=== PATIENT | female | born 1990 | race African-American/Black ===

== ENCOUNTER 2019-06-25 04:37 | Emergency (ER) | payer OTHER, SELFPAY ==
--- NOTE | ~2019-06-25 | XR_ITS ---
EXAMINATION: CT abdomen pelvis wo con, XR abdomen/kub 1V DATE: 06/25/2019 06:12 INDICATION: Left flank pain TECHNIQUE: 1. Computed tomography (CT) of the abdomen and pelvis was performed without intravenous contrast. Aut omated exposure control and iterative reconstruction technique were employed. The dose-length product was 252.23 mGy-cm. 2. Frontal view of the abdomen and pelvis was obtained on 2 radiographs. COMPARISON: 04/02/2017 FINDINGS: CT: Lung bases are clear. Heart size is normal. No pericardial or pleural effusion. Liver, gallbladder, s pleen, pancreas, bilateral adrenal glands and kidneys are normal. No urolithiasis or hydronephrosis. Bladder is normal. Retroverted uterus and right adnexa are normal. 4.5 cm cystic lesion at the left a dnexa with slightly greater than simple fluid attenuation which appears to increase inferiorly. Bowel s including the appendix are normal. No free intraperitoneal gas or fluid. No pathologically enlarged abdominal or pelvic lymphadenopathy. Bones are unremarkable. KUB: Normal bowel gas pattern. No suspicious calcifications in the abdomen or pelvis. IMPRESSION: 1. 4.5 cm cystic left ovarian lesion with gradient of slightly greater than simple fluid attenuation, statistically most likely a hemorrhagic cyst but would consider pelvic ultrasound for further evalua tion. Reviewed, dictated and finalized at location A. MAKER MACHINE IMPRESSION: 1. 4.5 cm cystic left ovarian lesion with gradient of slightly greater than sim ple fluid attenuation, statistically most likely a hemorrhagic cyst but would c onsider pelvic ultrasound for further evaluation.
[2019-06-25 04:41] VITALS: BP 159/78; PULSE 118; RESP 16; TEMP 36.8; O2SAT 100
--- NOTE | 2019-06-25 05:21 | ED.ABDPAIN ---
HPI - Abdominal Pain General Chief Complaint: Abdominal Pain Stated Complaint: back pain Time Seen by Provider: 06/25/19 04:46 Source: patient Mode of arrival: ambulatory Limitations: no limitations History of Present Illness HPI narrative: 28 yo female who presents for evaluation of left flank pain. Patient states she has been having intermittent left flank pain for 3 days. She states drinking water helps to relieve the past for a short period. She states this morning she took 800 mg ibuprofen without relief . She denies urinary symptoms. She states she did vomiting once last night. She denies fever or chills. She denies abdominal pain. MD elicited complaint: flank pain Onset (ago): day(s) (3) Pain Consistency: intermittent Location: L flank Quality: dull Radiation: none Relieving factors: other (drinking water) Related Data Hx Last Menstrual Period: 10 days ago Allergies Allergy/AdvReac Type Severity Reaction Status Date / Time No Known Allergies Allergy Unknown Unverified 02/11/19 17:21 Review of Systems Review of Systems: All systems reviewed & are unremarkable except as noted in HPI and below Constitutional: Constitutional: Denies chills and Denies fever(s) Gastrointestinal: Gastrointestinal: Denies abdominal pain, Reports nausea and Reports vomiting Genitourinary: Genitourinary: Denies hematuria and Reports flank pain PMFSH Past Medical History Medical History (Updated 06/26/19 @ 00:00 by Donavan Valentin) GERD (gastroesophageal reflux disease) Social History Social History (Updated 06/25/19 @ 05:24 by Regla Gordillo MD) Smoking status: Never smoker Exam Narrative: Exam Narrative: GENERAL: Well-appearing, well-nourished, and in no acute distress. HEAD: Normocephalic, atraumatic NOSE: Nares clear, no rhinorrhea or epistaxis THROAT:Mucous membranes moist, Oropharynx normal without erythema, exudate, peritonsillar swelling or fluctuance NECK: Supple, without lymphadenopathy or mass RESPIRATORY: No respiratory distress, Airway patent, Respirations non-labored, Clear to auscultation without rales, rhonchi or wheeze HEART: Regular rate and rhythm. No murmur heard. Normal peripheral pulses. ABDOMEN: Soft, nontender, nondistended, normal active bowel sounds. No masses. No rebound or guarding, No organomegaly. EXTREMITIES: No edema, normal strength with full range of motion. SKIN: Warm, dry, normal color without rash NEURO: Alert and oriented x3. CN 2-12 grossly intact. No focal deficits. PSYCH: Normal mood and affect. Course Reevaluation(s) Reevaluation #1: Patient state she feels better. Patient has appointment with OBGYN on on . This does not appear to be torsion. Date: 06/25/19 Time: 06:51 Vital Signs Vital signs: Vital Signs Temperature 98.3 F 06/25/19 04:41 Pulse Rate 118 H 06/25/19 04:41 Respiratory Rate 16 06/25/19 04:41 Blood Pressure 159/78 H 06/25/19 04:41 Pulse Oximetry 100 06/25/19 04:41 Temperature 98.6 F 06/25/19 07:12 Pulse Rate 82 06/25/19 07:12 Respiratory Rate 16 06/25/19 07:12 Blood Pressure 112/85 06/25/19 07:12 Pulse Oximetry 100 06/25/19 07:12 MDM - Abdominal Pain Lab Data Result diagrams: 06/25/19 05:18 06/25/19 05:18 Labs: Lab Results 06/25/19 06/25/19 06/25/19 Range/Units 05:18 05:18 05:22 WBC 6.8 (4.5-10.0) K/mm3 RBC 4.29 (4.2-5.4) M/mm3 Hgb 10.9 L (12.0-15.0) g/dL Hct 34.3 L (37.0-47.0) % MCV 80.0 (80-100) fl MCH 25.4 L (26-34) pg MCHC 31.8 L (32-36) g/dl RDW 16.8 H (11.5-14.5) % Plt Count 300 (150-375) k/mm3 MPV 11.8 H (7.4-10.4) fl Immature Gran % (Auto) 0.1 (0-0.5) % Neut % (Auto) 46.5 (45.5-73.1) % Lymph % (Auto) 43.7 (18.3-44.2) % [place] % (Auto) 7.2 (2.6-8.5) % Eos % (Auto) 1.5 (0-4.4) % Baso % (Auto) 1.0 (0.2-1.2) % Lymph # (Auto) 2.96 (0.9-3.2) K/mm3 [place] # (A
[2019-06-25 05:36] LABS: Basophils Absolute Auto 0.1 K/mm3 (0.0-0.1); Eosinophils Absolute Auto 0.1 K/mm3 (0-0.3); Eosinophils Percent Auto 1.5 % (0-4.4); Hematocrit 34.3 % (37.0-47.0); Hemoglobin 10.9 g/dL (12.0-15.0); Immature Granulocyte Absolute 0.01 K/mm3 (0.00-0.031); Immature Granulocyte Percent A 0.1 % (0-0.5); Lymphocytes Absolute Auto 2.96 K/mm3 (0.9-3.2); Lymphocytes Percent Auto 43.7 % (18.3-44.2); Mean Corpuscular HGB Conc 31.8 g/dl (32-36); Mean Corpuscular Hemoglobin 25.4 pg (26-34); Mean Platelet Volume 11.8 fl (7.4-10.4); Monocytes Absolute Auto 0.5 K/mm3 (0.1-0.6); Monocytes Percent Auto 7.2 % (2.6-8.5); Neutrophils Absolute Auto 3.2 K/mm3 (1.3-6.7); Neutrophils Percent Auto 46.5 % (45.5-73.1); Platelet Count Result 300 k/mm3 (150-375); Red Blood Count 4.29 M/mm3 (4.2-5.4); Red Cell Distribution Width 16.8 % (11.5-14.5); White Blood Count 6.8 K/mm3 (4.5-10.0)
[2019-06-25 05:45] LABS: Add Urine Microscopic? YES; Appearance Urine Cloudy (Clear); Bacteria Urine Trace /hpf; Bilirubin Urine Negative (Negative); Blood Urine Negative (Negative); Color Urine Yellow (Yellow); Glucose Urine UA Negative (Negative); Ketones Urine Negative (Negative); Leukocyte Esterase Ur 1+ LEU/UL (Negative); Mucus Urine Moderate /lpf; Nitrate Urine Negative (Negative); Protein Urine Negative (Negative); Squamous Epithelial Cell Urine Many /hpf (Few); Urobilinogen Urine Negative mg/dL (<2.0)
[2019-06-25 05:48] VITALS: TEMP 36.8
[2019-06-25 05:50] LABS: Blood Urea Nitrogen 17 mg/dL (7-17); Calcium 9.4 mg/dL (8.4-10.2); Carbon Dioxide 23 mmol/L (22-30); Chloride 100 mmol/L (98-107); Estimated CRCL calculation 81 ml/min; Estimated Glomerular Filt Rate > 60; Glucose 105 mg/dL (65-105); Potassium 3.9 mmol/L (3.4-5.0); Sodium 138 mmol/L (137-145)
[2019-06-25] MEDS: LACTATED RINGERS 1,000 ML 999 ML IV CONT (06:16)
[2019-06-25 06:26] VITALS: BP 122/68; PULSE 75; RESP 16; TEMP 37; O2SAT 100
[2019-06-25 07:12] VITALS: BP 112/85; PULSE 82; RESP 16; TEMP 37; O2SAT 100
--- NOTE | 2019-06-27 20:40 | PC.NURSE ---
LATE ENTRY This note is being entered to document information to the patient's record. The following information was omitted on 06/25/2019, LR STOPPED AT 0556.
== END 2019-06-25 07:13 | disposition home or self-care (01) ==
PROVIDERS: Emergency Provider General Practice
DX: K21.9 Gastro-esophageal reflux disease without esophagitis (principal); N83.202 Unspecified ovarian cyst, left side; N39.0 Urinary tract infection, site not specified
CPT/HCPCS: 36415; 74018; 74176; 80048; 81001; 81025; 85025; 96374; 99284; J0131; J7120

== ENCOUNTER 2020-01-29 19:41 | Emergency (ER) | payer OTHER, SELFPAY ==
[2020-01-29 19:53] VITALS: BP 152/94; PULSE 94; RESP 16; TEMP 36.9; O2SAT 97
--- NOTE | 2020-01-29 19:58 | ED.FEMALEGU ---
HPI - Female Genitourinary General Chief complaint: Urogenital-Female Stated complaint: Uroggenital-female Time Seen by Provider: 01/29/20 19:58 Source: patient Mode of arrival: ambulatory Limitations: no limitations History of Present Illness HPI Narrative: 29 year old female who presents to [facility] with complaints of dysuria, feeling like she is not emptying her bladder and her urine having foul odor. 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 Patient did receive Flagyl 2gms on January 14. Patient states that she has recently started on iron and Vitamin D and she has been having some constipation issues. Patient states that she has aching sensation in perineum rates her pain 3/10. MD elicited complaint: dysuria, back pain and other (hesitency with urination, foul odor, constipation) Pertinent past history: other (past UTI's) Onset (ago): week(s) (1) Location of symptoms: perineum Severity: mild Female Urogenital Radiation: Non-Radiating Severity scale (1-10): 3 Quality of pain: aching Consistency: intermittent Vaginal discharge: none Vaginal bleeding: none Urinary symptoms: Foul Smelling Urine Associated symptoms: back pain and constipation Treatment prior to arrival: none Sexual activity: Yes Patient : No Date of Last Menstrual Period: 01/17/20 Related Data Home Medications Medication Instructions Recorded Confirmed omeprazole 40 mg PO DAILY 01/29/20 01/29/20 Allergies Allergy/AdvReac Type Severity Reaction Status Date / Time No Known Allergies Allergy Unknown Unverified 02/11/19 17:21 Review of Systems Review of Systems: Narrative: CONSTITUTIONAL: Denies fever, chills, or sweats. EYES: Denies visual changes, redness, or discharge. ENT: Denies rhinorrhea, congestion, sore throat, or otalgia. CARDIOVASCULAR: Denies chest pain, palpitations, or edema. RESPIRATORY: Denies cough or dyspnea. GASTROINTESTINAL: Denies abdominal pain, nausea, vomiting, or diarrhea. GENITOURINARY: positive dysuria no hematuria.perineum aching SKIN: Denies rash or itching. MUSCULOSKELETAL: some low back discomfort, no joint pain, or myalgia. NEUROLOGIC: Denies headache, numbness, or weakness. PSYCHIATRIC: Denies anxiety or depression. All systems reviewed & are unremarkable except as noted in HPI and below PMFSH Past Medical History Medical History (Updated 01/30/20 @ 20:08 by Ora Naqvi NP) GERD (gastroesophageal reflux disease) UTI (urinary tract infection) Social History Social History (Updated 01/30/20 @ 20:06 by Ora Naqvi NP) Smoking status: Never smoker Living arrangements: with family Gender identity (if verbalized by the patient): Female Comments At time of signature, agree with nursing past medical, surgical, social history. There is no relevant family history pertinent to the presenting complaint Exam Narrative: Exam Narrative: GENERAL: Well-appearing, well-nourished, and in no acute distress. HEAD: Normocephalic, atraumatic. EYES: PERRLA and EOMI. ENT: Nares clear, no rhinorrhea or epistaxis. Mucous membranes moist. NECK: Supple. No lymphadenopathy CHEST: Clear to auscultation. No respiratory distress. HEART: Regular rate and rhythm. No murmur heard. Normal peripheral pulses. ABDOMEN: Soft, nontender, nondistended, normal active bowel sounds.No CVA tenderness, verbalizes feelings like she is not emptying bladder and perineum discomfort EXTREMITIES: Normal range of motion. No edema. SKIN: Warm, dry, no rash. NEURO: No focal deficits. Alert and oriented x3. Course Vital Signs Vital signs: Vital Signs Temperature 36.9 C 01/29/20 19:53 Pulse Rate 94 01/29/20 19:53 Respiratory Rate 16 01/29/20 19:53 Blood Pressure 152/94 H 01/29/20 19:53 Pulse Oximetry 97 01/29/20 19:53 Temperature 36.9 C 01/29/20 19:53 Pulse Rate 94 01/29/20 19:53 Respiratory Rate 16 01/29/20 19:53 Blood Pressure
== END 2020-01-29 20:07 | disposition home or self-care (01) ==
PROVIDERS: Emergency Provider Registered Nurse; PCP Physician Assistant
DX: R30.0 Dysuria (principal); K59.00 Constipation, unspecified; K21.9 Gastro-esophageal reflux disease without esophagitis
CPT/HCPCS: 81003; 99212; G0463

== ENCOUNTER 2020-07-19 02:02 | Emergency (ER) | payer BC, SELFPAY ==
[2020-07-19 02:05] VITALS: BP 167/87; PULSE 123; RESP 20; TEMP 36.7; O2SAT 100
[2020-07-19] MEDS: SODIUM CHLORIDE 0.9% IV 1,000 ML 999 ML IV CONT (02:45)
[2020-07-19 02:48] LABS: Basophils Absolute Auto 0.1 K/mm3 (0.0-0.1); Basophils Percent Auto 0.8 % (0.2-1.2); Eosinophils Absolute Auto 0.1 K/mm3 (0-0.3); Eosinophils Percent Auto 1.1 % (0-4.4); Hematocrit 36.3 % (37.0-47.0); Hemoglobin 12.3 g/dL (12.0-15.0); Immature Granulocyte Absolute 0.03 K/mm3 (0.00-0.031); Immature Granulocyte Percent A 0.3 % (0-0.5); Lymphocytes Absolute Auto 3.15 K/mm3 (0.9-3.2); Lymphocytes Percent Auto 30.8 % (18.3-44.2); Mean Corpuscular HGB Conc 33.9 g/dl (32-36); Mean Corpuscular Hemoglobin 27.8 pg (26-34); Mean Corpuscular Volume 81.9 fl (80-100); Mean Platelet Volume 10.8 fl (7.4-10.4); Monocytes Absolute Auto 0.5 K/mm3 (0.1-0.6); Monocytes Percent Auto 5.1 % (2.6-8.5); Neutrophils Absolute Auto 6.3 K/mm3 (1.3-6.7); Neutrophils Percent Auto 61.9 % (45.5-73.1); Platelet Count Result 401 k/mm3 (150-375); Red Blood Count 4.43 M/mm3 (4.2-5.4); Red Cell Distribution Width 13.1 % (11.5-14.5); White Blood Count 10.2 K/mm3 (4.5-10.0)
[2020-07-19 02:53] LABS: Add Urine Microscopic? YES; Appearance Urine Cloudy (Clear); Bacteria Urine 1+ /hpf; Bilirubin Urine Negative (Negative); Blood Urine Negative (Negative); Color Urine Yellow (Yellow); Glucose Urine UA Negative (Negative); Ketones Urine Negative (Negative); Leukocyte Esterase Ur Trace LEU/UL (Negative); Mucus Urine Rare /lpf; Nitrate Urine Negative (Negative); Protein Urine 1+ mg/dL (Negative); Specific Grav Ur 1.018 (1.001-1.035); Squamous Epithelial Cell Urine Moderate /hpf (Few); Urobilinogen Urine Negative mg/dL (<2.0)
[2020-07-19 02:54] VITALS: BP 148/91; PULSE 94; RESP 15; O2SAT 100
[2020-07-19 03:00] LABS: Anion Gap 8 mmol/L (8-16); Blood Urea Nitrogen 13 mg/dL (7-17); Carbon Dioxide 23 mmol/L (22-30); Chloride 106 mmol/L (98-107); Estimated CRCL calculation 77 ml/min; Estimated Glomerular Filt Rate > 60; Glucose 109 mg/dL (65-105); Potassium 4.2 mmol/L (3.4-5.0); Sodium 137 mmol/L (137-145)
--- NOTE | 2020-07-19 03:40 | ED.GENADULT ---
HPI - General Adult General Chief complaint: Unspecified Stated complaint: cold flashes Time Seen by Provider: 07/19/20 02:05 History of Present Illness HPI narrative: Patient is a 29-year-old female who presents ER with complaint of chills to her extremities. Ongoing throughout the evening. It has her concerned. She has history of anemia. No bleeding recently. She has not been taking iron but does take vitamins. Recently discovered that she is via IVF. Did implantation 2 weeks ago. No lower abdominal pain outside of some typical cramping that she has been experiencing. Has follow-up with her infertility doctor tomorrow. Patient denies runny nose/sore throat/productive cough. She has had no urinary frequency/urgency/dysuria. No nausea/vomiting/diarrhea. No known sick contacts or Covid contacts. Related Data Home Medications Medication Instructions Recorded Confirmed estradiol mg 07/19/20 progesterone mg IM 07/19/20 Allergies Allergy/AdvReac Type Severity Reaction Status Date / Time No Known Allergies Allergy Unknown Verified 07/19/20 02:09 Review of Systems Constitutional: Constitutional: Reports chills, Denies fatigue and Denies fever(s) ENT: Denies nasal congestion and Denies sore throat Respiratory: Respiratory: Denies chest congestion, Denies cough and Denies dyspnea Gastrointestinal: Gastrointestinal: Denies abdominal pain, Denies diarrhea, Denies nausea and Denies vomiting Genitourinary: Genitourinary: Denies dysuria and Denies urinary urgency PMFSH Past Medical History Medical History (Updated 07/19/20 @ 03:48 by Emerson Ervin MD) GERD (gastroesophageal reflux disease) UTI (urinary tract infection) Social History Social History (Updated 01/30/20 @ 20:06 by rOa Naqvi NP) Smoking status: Never smoker Gender identity (if verbalized by the patient): Female Exam Narrative: Exam Narrative: GENERAL: Well-appearing, well-nourished, and in no acute distress. HEAD: Normocephalic, atraumatic. CHEST: Clear to auscultation. No respiratory distress. HEART: Regular rate and rhythm. Normal peripheral pulses. ABDOMEN: Soft, nontender, nondistended. EXTREMITIES: Normal range of motion. No edema. SKIN: Warm, dry, no rash. NEURO: Alert and oriented x3. Course Course Emergency Course: Patient hydrated. Tachycardia improved. Will treat urinalysis. Vital Signs Vital signs: Vital Signs Temperature 98.1 F 07/19/20 02:05 Pulse Rate 123 H 07/19/20 02:05 Respiratory Rate 20 07/19/20 02:05 Blood Pressure 167/87 H 07/19/20 02:05 Pulse Oximetry 100 07/19/20 02:05 Temperature 98.1 F 07/19/20 02:05 Pulse Rate 94 07/19/20 02:54 Respiratory Rate 15 07/19/20 02:54 Blood Pressure 148/91 H 07/19/20 02:54 Pulse Oximetry 100 07/19/20 02:54 Medical Decision Making Vital Signs Vital Signs: Vital Signs Temperature 98.1 F 07/19/20 02:05 Pulse Rate 123 H 07/19/20 02:05 Respiratory Rate 20 07/19/20 02:05 Blood Pressure 167/87 H 07/19/20 02:05 Pulse Oximetry 100 07/19/20 02:05 Temperature 98.1 F 07/19/20 02:05 Pulse Rate 94 07/19/20 02:54 Respiratory Rate 15 07/19/20 02:54 Blood Pressure 148/91 H 07/19/20 02:54 Pulse Oximetry 100 07/19/20 02:54 Lab Data Result diagrams: 07/19/20 02:41 07/19/20 02:41 Labs: Lab Results 07/19/20 07/19/20 07/19/20 Range/Units 02:41 02:41 02:41 WBC 10.2 H (4.5-10.0) K/mm3 RBC 4.43 (4.2-5.4) M/mm3 Hgb 12.3 (12.0-15.0) g/dL Hct 36.3 L (37.0-47.0) % MCV 81.9 (80-100) fl MCH 27.8 (26-34) pg MCHC 33.9 (32-36) g/dl RDW 13.1 (11.5-14.5) % Plt Count 401 H (150-375) k/mm3 MPV 10.8 H (7.4-10.4) fl Immature Gran % (Auto) 0.3 (0-0.5) % Neut % (Auto) 61.9 (45.5-73.1) % Lymph % (Auto) 30.8 (18.3-44.2) % [place] % (Auto) 5.1 (2.6-8.5) % Eos % (Auto) 1.1 (0-4.4) % Baso % (
[2020-07-19 04:06] VITALS: BP 127/82; PULSE 90; RESP 18; O2SAT 100
== END 2020-07-19 04:08 | disposition home or self-care (01) ==
PROVIDERS: Emergency Provider Emergency Medicine; PCP Physician Assistant
DX: O23.91 Unspecified genitourinary tract infection in pregnancy, first trimester (principal); O99.011 Anemia complicating pregnancy, first trimester; D64.9 Anemia, unspecified; O99.611 Diseases of the digestive system complicating pregnancy, first trimester; K21.9 Gastro-esophageal reflux disease without esophagitis; Z3A.01 Less than 8 weeks gestation of pregnancy
CPT/HCPCS: 36415; 80048; 81001; 85025; 96360; 99283; J7030

== ENCOUNTER 2020-08-20 18:08 | Emergency (ER) | payer BC, SELFPAY ==
[2020-08-20 18:10] VITALS: BP 156/77; PULSE 93; RESP 16; TEMP 36.5; O2SAT 99
[2020-08-20 19:12] LABS: Basophils Absolute Auto 0.1 K/mm3 (0.0-0.1); Basophils Percent Auto 0.8 % (0.2-1.2); Eosinophils Absolute Auto 0.3 K/mm3 (0-0.3); Eosinophils Percent Auto 2.8 % (0-4.4); Hemoglobin 12.1 g/dL (12.0-15.0); Immature Granulocyte Absolute 0.02 K/mm3 (0.00-0.031); Immature Granulocyte Percent A 0.2 % (0-0.5); Lymphocytes Absolute Auto 3.04 K/mm3 (0.9-3.2); Lymphocytes Percent Auto 32.6 % (18.3-44.2); Mean Corpuscular HGB Conc 33.6 g/dl (32-36); Mean Corpuscular Hemoglobin 27.7 pg (26-34); Mean Corpuscular Volume 82.4 fl (80-100); Mean Platelet Volume 10.9 fl (7.4-10.4); Monocytes Absolute Auto 0.6 K/mm3 (0.1-0.6); Monocytes Percent Auto 6.3 % (2.6-8.5); Neutrophils Absolute Auto 5.3 K/mm3 (1.3-6.7); Neutrophils Percent Auto 57.3 % (45.5-73.1); Platelet Count Result 347 k/mm3 (150-375); Red Blood Count 4.37 M/mm3 (4.2-5.4); Red Cell Distribution Width 13.1 % (11.5-14.5); White Blood Count 9.3 K/mm3 (4.5-10.0)
[2020-08-20 19:17] LABS: Add Urine Microscopic? YES; Appearance Urine Cloudy (Clear); Bacteria Urine Trace /hpf; Bilirubin Urine Negative (Negative); Blood Urine Negative (Negative); Color Urine Yellow (Yellow); Glucose Urine UA Negative (Negative); Ketones Urine Negative (Negative); Leukocyte Esterase Ur Negative LEU/UL (Negative); Mucus Urine Moderate /lpf; Nitrate Urine Negative (Negative); Protein Urine 1+ mg/dL (Negative); RBC Urine 0-2 /hpf (0-2); Specific Grav Ur 1.027 (1.001-1.035); Squamous Epithelial Cell Urine Occasional /hpf (Few); WBC Urine 0-3 /hpf
[2020-08-20 19:25] LABS: Alanine Aminotransferase 23 U/L (4-35); Albumin Level 4.3 g/dL (3.5-5.1); Alkaline Phosphatase 74 U/L (38-126); Anion Gap 9 mmol/L (8-16); Aspartate Amino Transferase 33 U/L (14-36); Bilirubin,Total < 0.1 mg/dL (0.2-1.3); Blood Urea Nitrogen 13 mg/dL (7-17); Carbon Dioxide 25 mmol/L (22-30); Chloride 103 mmol/L (98-107); Estimated CRCL calculation 89 ml/min; Estimated Glomerular Filt Rate > 60; Glucose 91 mg/dL (65-105); Potassium 3.5 mmol/L (3.4-5.0); Sodium 137 mmol/L (137-145)
[2020-08-20 20:18] VITALS: BP 131/86; PULSE 83; RESP 18; O2SAT 100
--- NOTE | 2020-08-20 20:24 | ED.GENADULT ---
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 Juve Norman. Patient notes slight cramping no other complaints denies injury trauma or other illness. Patient presents in no distress. Patient is G1, P0. Related Data Home Medications Medication Instructions Recorded Confirmed estradiol mg 07/19/20 progesterone mg IM 07/19/20 Allergies Allergy/AdvReac Type Severity Reaction Status Date / Time No Known Allergies Allergy Unknown Verified 08/20/20 18:45 Review of Systems Review of Systems: All systems reviewed & are unremarkable except as noted in HPI and below PMFSH Past Medical History Medical History GERD (gastroesophageal reflux disease) UTI (urinary tract infection) Social History Social History Smoking status: Never smoker Gender identity (if verbalized by the patient): Female Exam Narrative: Exam Narrative: GENERAL: Well-appearing, well-nourished, and in no acute distress. HEAD: Normocephalic, atraumatic. EYES: PERRLA and EOMI. ENT: Nares clear, no rhinorrhea or epistaxis. Mucous membranes moist. CHEST: Clear to auscultation. No respiratory distress. No wheezes rales or rhonchi HEART: Regular rate and rhythm. No murmur heard. Normal peripheral pulses. ABDOMEN: Soft, nontender, nondistended. EXTREMITIES: Normal range of motion. No edema. SKIN: Warm, dry, no rash. NEURO: No focal deficits. Alert and oriented x3. PSYCH: Normal mood and affect. Course Course Emergency Course: Patient in the room no distress aware of case findings treatment plan and diagnosis agreeing to follow-up with her cfd engineer tomorrow. Patient at this time felt appropriate for outpatient reevaluation did not require RhoGam hemodynamically stable Consultations Consultation #1: Discussed case with Dr. Soria is no other recommendations at this time and will follow patient in clinic tomorrow Date: 08/20/20 Time: 20:25 Vital Signs Vital signs: Vital Signs Temperature 97.7 F 08/20/20 18:10 Pulse Rate 93 08/20/20 18:10 Respiratory Rate 16 08/20/20 18:10 Blood Pressure 156/77 H 08/20/20 18:10 Pulse Oximetry 99 08/20/20 18:10 Temperature 97.7 F 08/20/20 18:10 Pulse Rate 83 08/20/20 20:18 Respiratory Rate 18 08/20/20 20:18 Blood Pressure 131/86 08/20/20 20:18 Pulse Oximetry 100 08/20/20 20:18 Medical Decision Making MDM Narrative Medical decision making narrative: Patient with vaginal bleeding in will follow with her cfd engineer tomorrow is hemodynamically stable felt appropriate for outpatient reevaluation has been given reasons to return Vital Signs Vital Signs: Vital Signs Temperature 97.7 F 08/20/20 18:10 Pulse Rate 93 08/20/20 18:10 Respiratory Rate 16 08/20/20 18:10 Blood Pressure 156/77 H 08/20/20 18:10 Pulse Oximetry 99 08/20/20 18:10 Temperature 97.7 F 08/20/20 18:10 Pulse Rate 83 08/20/20 20:18 Respiratory Rate 18 08/20/20 20:18 Blood Pressure 131/86 08/20/20 20:18 Pulse Oximetry 100 08/20/20 20:18 Lab Data Result diagrams: 08/20/20 19:06 08/20/20 19:06 Labs: Lab Results 08/20/20 08/20/20 08/20/20 Range/Units 19:06 19:06 19:06 WBC 9.3 (4.5-10.0) K/mm3 RBC 4.37 (4.2-5.4) M/mm3 Hgb 12.1 (12.0-15.0) g/dL Hct 36.0 L (37.0-47.0) % MCV 82.4 (80-100) fl MCH 27.7 (26-34) pg MCHC 33.6 (32-36) g/dl RDW 13.1 (11.5-1
== END 2020-08-20 20:35 | disposition home or self-care (01) ==
PROVIDERS: Emergency Medicine Emergency Medical Services; Emergency Provider Emergency Medicine; PCP Physician Assistant
DX: O20.9 Hemorrhage in early pregnancy, unspecified (principal); Z3A.09 9 weeks gestation of pregnancy; O99.611 Diseases of the digestive system complicating pregnancy, first trimester; K21.9 Gastro-esophageal reflux disease without esophagitis; Z87.440 Personal history of urinary (tract) infections
CPT/HCPCS: 36415; 80053; 81001; 84702; 85025; 99283

== ENCOUNTER 2020-09-27 14:33 | Emergency (ER) | payer SELFPAY ==
[2020-09-27 14:36] VITALS: BP 146/77; PULSE 106; RESP 20; TEMP 36.7; O2SAT 99
[2020-09-27 14:46] LABS: Basophils Absolute Auto 0.1 K/mm3 (0.0-0.1); Basophils Percent Auto 0.7 % (0.2-1.2); Eosinophils Absolute Auto 0.1 K/mm3 (0-0.3); Eosinophils Percent Auto 0.7 % (0-4.4); Hematocrit 36.3 % (37.0-47.0); Hemoglobin 12.2 g/dL (12.0-15.0); Immature Granulocyte Absolute 0.02 K/mm3 (0.00-0.031); Immature Granulocyte Percent A 0.2 % (0-0.5); Lymphocytes Absolute Auto 2.84 K/mm3 (0.9-3.2); Lymphocytes Percent Auto 33.2 % (18.3-44.2); Mean Corpuscular HGB Conc 33.6 g/dl (32-36); Mean Corpuscular Volume 83.4 fl (80-100); Mean Platelet Volume 11.2 fl (7.4-10.4); Monocytes Absolute Auto 0.5 K/mm3 (0.1-0.6); Monocytes Percent Auto 5.8 % (2.6-8.5); Neutrophils Absolute Auto 5.1 K/mm3 (1.3-6.7); Neutrophils Percent Auto 59.4 % (45.5-73.1); Platelet Count Result 274 k/mm3 (150-375); Red Blood Count 4.35 M/mm3 (4.2-5.4); Red Cell Distribution Width 12.7 % (11.5-14.5); White Blood Count 8.6 K/mm3 (4.5-10.0)
[2020-09-27 14:53] LABS: Add Urine Microscopic? YES; Appearance Urine Cloudy (Clear); Bilirubin Urine Negative (Negative); Blood Urine Negative (Negative); Color Urine Yellow (Yellow); Glucose Urine UA Negative (Negative); Ketones Urine Negative (Negative); Leukocyte Esterase Ur Trace LEU/UL (Negative); Mucus Urine Rare /lpf; Nitrate Urine Negative (Negative); Protein Urine 1+ mg/dL (Negative); RBC Urine 0-2 /hpf (0-2); Specific Grav Ur 1.025 (1.001-1.035); Squamous Epithelial Cell Urine Few /hpf (Few); Urobilinogen Urine Negative mg/dL (<2.0); WBC Urine 0-3 /hpf
[2020-09-27 14:57] LABS: Alanine Aminotransferase 13 U/L (4-35); Albumin Level 4.2 g/dL (3.5-5.1); Alkaline Phosphatase 61 U/L (38-126); Anion Gap 11 mmol/L (8-16); Aspartate Amino Transferase 25 U/L (14-36); Bilirubin,Total 0.1 mg/dL (0.2-1.3); Blood Urea Nitrogen 14 mg/dL (7-17); Calcium 9.8 mg/dL (8.4-10.2); Carbon Dioxide 22 mmol/L (22-30); Chloride 104 mmol/L (98-107); Estimated CRCL calculation 82 ml/min; Estimated Glomerular Filt Rate > 60; Glucose 96 mg/dL (65-105); Lipase 105 U/L (23-300); Potassium 4.3 mmol/L (3.4-5.0); Sodium 137 mmol/L (137-145)
--- NOTE | 2020-09-27 16:23 | ED.ABDPAIN ---
HPI - Abdominal Pain General Chief Complaint: Abdominal Pain Stated Complaint: vomting, abd pain, 14 wks Time Seen by Provider: 09/27/20 16:12 Source: patient Mode of arrival: ambulatory Limitations: no limitations History of Present Illness HPI narrative: This is a 29-year-old female, about 14 weeks that presents the emergency department for nausea and vomiting. Present over the last week. She has been taking vitamin B6 and Unisom with little relief. Also reports earlier today she had some mid abdominal pain which is what prompted her to be seen. Denies fever, dysuria or vaginal bleeding. Related Data Home Medications Medication Instructions Recorded Confirmed estradiol mg 07/19/20 progesterone mg IM 07/19/20 Allergies Allergy/AdvReac Type Severity Reaction Status Date / Time No Known Allergies Allergy Unknown Verified 08/20/20 18:45 Review of Systems Review of Systems: Narrative: CONSTITUTIONAL: Denies fever GASTROINTESTINAL: Reports abdominal pain, nausea, vomiting GENITOURINARY: Denies dysuria All systems reviewed & are unremarkable except as noted in HPI and below PMFSH Past Medical History Medical History GERD (gastroesophageal reflux disease) UTI (urinary tract infection) Social History Social History Smoking status: Never smoker Gender identity (if verbalized by the patient): Female Exam Narrative: Exam Narrative: GENERAL: Well-appearing, well-nourished, and in no acute distress. HEAD: Normocephalic, atraumatic. EYES: EOMI. CHEST: Clear to auscultation. No respiratory distress. No wheezes rales or rhonchi HEART: Regular rate and rhythm. No murmur heard. Normal peripheral pulses. ABDOMEN: Soft, nontender, nondistended, normal active bowel sounds. EXTREMITIES: Normal range of motion. No edema. SKIN: Warm, dry, no rash. NEURO: No focal deficits. Alert and oriented x3. PSYCH: Normal mood and affect Course Consultations Consultation #1: Spoke with Dr. Soria personal service workers about work-up. Patient will be given prescription for Zofran and is to follow-up in clinic. Date: 09/27/20 Time: 17:53 Vital Signs Vital signs: Vital Signs Temperature 98.0 F 09/27/20 14:36 Pulse Rate 106 H 09/27/20 14:36 Respiratory Rate 20 09/27/20 14:36 Blood Pressure 146/77 H 09/27/20 14:36 Pulse Oximetry 99 09/27/20 14:36 Temperature 98.0 F 09/27/20 14:36 Pulse Rate 106 H 09/27/20 14:36 Respiratory Rate 20 09/27/20 14:36 Blood Pressure 146/77 H 09/27/20 14:36 Pulse Oximetry 99 09/27/20 14:36 MDM - Abdominal Pain MDM Narrative Medical decision making narrative: Patient presents the emergency department for nausea and vomiting, 14 weeks . Was also reporting some abdominal discomfort earlier today. She is afebrile and nontoxic-appearing. Abdominal exam is benign. CBC and metabolic panel without concerning findings. Lipase is normal. UA without evidence of infection. Patient has had an ultrasound this showing live intrauterine gestation. She reports relief with IV fluids, Tylenol and Zofran. She has an appointment for follow-up with her OB tomorrow. Spoke with Dr. Soria personal service workers about work-up. Patient will be given prescription for Zofran and is to follow-up in clinic. She was given warnings to return to the ER Lab Data Attestation: I reviewed the patient's lab results. Result diagrams: 09/27/20 14:39 09/27/20 14:39 Labs: Lab Results 09/27/20 09/27/20 09/27/20 Range/Units 14:39 14:39 14:44 WBC 8.6 (4.5-10.0) K/mm3 RBC 4.35 (4.2-5.4) M/mm3 Hgb 12.2 (12.0-15.0) g/dL Hct 36.3 L (37.0-47.0) % MCV 83.4 (80-100) fl MCH 28.0 (26-34) pg MCHC 33.6 (32-36) g/dl RDW 12.7 (11.5-14.5) % Plt Count 274 (150-375) k/mm3 MPV 11.2 H (7.4-10.4) fl Immature Gran %
[2020-09-27] MEDS: SODIUM CHLORIDE 0.9% IV 1,000 ML 999 ML IV CONT (16:29)
[2020-09-27] MEDS: FAMOTIDINE 20 MG/2 ML VIAL IV PUSH (16:30)
[2020-09-27] MEDS: ONDANSETRON INJ 4 MG/2 ML VIAL IV PUSH (16:33)
== END 2020-09-27 18:21 | disposition home or self-care (01) ==
PROVIDERS: Emergency Provider Emergency Medicine; PCP Physician Assistant
DX: O21.9 Vomiting of pregnancy, unspecified (principal); O99.612 Diseases of the digestive system complicating pregnancy, second trimester; K21.9 Gastro-esophageal reflux disease without esophagitis; Z87.440 Personal history of urinary (tract) infections; Z3A.14 14 weeks gestation of pregnancy
CPT/HCPCS: 36415; 80053; 81001; 83690; 85025; 96361; 96374; 96375; 99284; J0131; J2405; J7030

== ENCOUNTER 2020-10-15 07:45 | Emergency (ER) | payer SELFPAY ==
--- NOTE | ~2020-10-15 | US_ITS ---
EXAMINATION: US OB follow up DATE: 10/15/2020 08:59 INDICATION: Vaginal bleeding during early second trimester . TECHNIQUE: Real-time ultrasound of the pelvis was performed. The interpreting radiologist was not pre sent for the study. COMPARISON: None. FINDINGS: There is a single living fetus in breech presentation. The placenta is posterior. heart rate i s 153 beats per minute (bpm). Oligohydramnios with no discernible fluid surrounding the fetus. This l imits assessment of the subsequent biometric measurements. The following biometric data were obtained: BPD: 3.3 cm -> 16 weeks 2 days Head circumference: 11.7 cm -> 15 weeks 5 days Abdominal circumference: 11.3 cm -> 17 weeks 1 days Femur length: 1.9 cm -> 15 weeks 4 days These measurements are concordant. Head circumference to abdominal circumference ratio: 1.03 (normal range 1.06-1.33). Estimated weight: 151 g (+/-) 23 g or 5 oz. (+/-) 1 oz. IMPRESSION: 1. Single living fetus in breech presentation with heart rate of 153 bpm. 2. Gestational age by ultrasound of 16 weeks 1 day(s) +/- 1 week(s) 1 day(s) with ultrasound estimate d date of delivery (PAULIE) of 03/31/2021. Estimated weight is 14th percentile by Hadlock criteria when 03/26/2021 is used as the PAULIE. Please correlate with clinical information or earlier ultrasound s for most accurate PAULIE. 3. Oligohydramnios with no discernible amniotic fluid surrounding the fetus. 4. Head circumference to abdominal circumference ratio slightly below the normal range however assess ment of both measurements is limited by the absence of surrounding amniotic fluid. Reviewed, dictated and finalized at location A. IMPRESSION: 1. Single living fetus in breech presentation with heart rate of 153 bpm. 2. Gestational age by ultrasound of 16 weeks 1 day(s) +/- 1 week(s) 1 day(s) wi th ultrasound estimated date of delivery (PAULIE) of 03/31/2021. Estimated w eight is 14th percentile by Hadlock criteria when 03/26/2021 is used as the PAULIE . Please correlate with clinical information or earlier ultrasounds for most ac curate PAULIE. 3. Oligohydramnios with no discernible amniotic fluid surrounding the fetus. 4. Head circumference to abdominal circumference ratio slightly below the opal l range however assessment of both measurements is limited by the absence of frias rrounding amniotic fluid.
[2020-10-15 07:53] VITALS: BP 154/92; PULSE 150; RESP 20; TEMP 36.7; O2SAT 100
--- NOTE | 2020-10-15 08:10 | ED.PREGNANCY ---
HPI - General Chief complaint: Vaginal Bleeding Stated complaint: 16 weeks gestation, vaginal bleeding Time Seen by Provider: 10/15/20 08:09 Source: patient Mode of arrival: ambulatory Limitations: no limitations History of Present Illness HPI Narrative: Patient is a 29-year-old female G2, P1 who presents for evaluation of vaginal bleeding. Patient currently 16 weeks , experiencing more cramping with vaginal bleeding that started early this morning. No gross blood clots. No heavy bleeding. No current severe abdominal pain. No back pain. No loss of fluids. No large blood clots. Patient is not yet feeling motion with this . Patient has had 1 ultrasound this which verified an IUP. No recent heavy lifting or vaginal intercourse. No back pain. Denies urinary symptoms. No fever, chills, cough or shortness of breath. No syncopal events. Patient is followed by Dr. Soria. This has otherwise been uncomplicated. Related Data Home Medications Medication Instructions Recorded Confirmed estradiol mg 07/19/20 progesterone mg IM 07/19/20 Allergies Allergy/AdvReac Type Severity Reaction Status Date / Time No Known Allergies Allergy Unknown Verified 10/15/20 07:56 Review of Systems Review of Systems: Narrative: CONSTITUTIONAL: Denies fever, chills, or sweats. EYES: Denies visual changes, redness, or discharge. ENT: Denies rhinorrhea, congestion, sore throat, or otalgia. CARDIOVASCULAR: Denies chest pain, palpitations, or edema. RESPIRATORY: Denies cough or dyspnea. GASTROINTESTINAL: Denies abdominal pain, nausea, vomiting, or diarrhea. : Reports light vaginal spotting GENITOURINARY: Denies dysuria or hematuria. SKIN: Denies rash or itching. MUSCULOSKELETAL: Denies back pain, joint pain, or myalgia. NEUROLOGIC: Denies headache, numbness, or weakness. [facility] Past Medical History Medical History GERD (gastroesophageal reflux disease) UTI (urinary tract infection) Social History Social History Smoking status: Never smoker Gender identity (if verbalized by the patient): Female Exam Narrative: Exam Narrative: GENERAL: Awake, alert, conversant HEAD: Normocephalic, atraumatic. EYES: PERRLA and EOMI. ENT: Nares clear, no rhinorrhea or epistaxis. Mucous membranes moist. NECK: Supple. CHEST: No respiratory distress, breathing even and non labored HEART: Regular rate, sinus rhythm ABDOMEN:Non distended, non tender : Labia majora and minora normal without lesions. Vagina with scant blood. No cervical motion tenderness. No adnexal tenderness or fullness bilaterally. No other discharge present. EXTREMITIES: Normal range of motion. No edema. SKIN: Warm, dry, no rash. NEURO:No focal deficits. Alert and oriented x3 Course Vital Signs Vital signs: Vital Signs Temperature 36.7 C 10/15/20 07:53 Pulse Rate 150 H 10/15/20 07:53 Respiratory Rate 20 10/15/20 07:53 Blood Pressure 154/92 H 10/15/20 07:53 Pulse Oximetry 100 10/15/20 07:53 Temperature 36.7 C 10/15/20 07:53 Pulse Rate 113 H 10/15/20 09:29 Respiratory Rate 20 10/15/20 09:29 Blood Pressure 142/95 H 10/15/20 09:29 Pulse Oximetry 100 10/15/20 09:29 MDM - OB/Uterine Contractions MDM Narrative Medical decision making narrative: Patient presenting for evaluation of vaginal bleeding in the setting of early second trimester . At the time of assessment, ABCs are intact, patient is tachycardic but quite anxious. No hypotension. IV access obtained and labs are drawn. Patient with scant bleeding, no brisk bleeding found on exam. parts are not presenting currently. No large clots. Patient is mildly anemic. No sign of gross hemorrhage or brisk blood loss. Laboratory results show no electrolyte derangement. Ultrasound was obtained, shows oligohydramnios. Afte
--- NOTE | 2020-10-15 08:47 | PC.NURSE ---
patient taken to ultrasound at this time, will obtain blood and urine when patient returns to room
--- NOTE | 2020-10-15 09:08 | PC.NURSE ---
Patient unable to give urine sample at this time, declines straight cath.
[2020-10-15 09:11] LABS: Basophils Percent Auto 0.3 % (0.2-1.2); Eosinophils Absolute Auto 0.1 K/mm3 (0-0.3); Hematocrit 34.7 % (37.0-47.0); Hemoglobin 11.9 g/dL (12.0-15.0); Immature Granulocyte Absolute 0.03 K/mm3 (0.00-0.031); Immature Granulocyte Percent A 0.3 % (0-0.5); Lymphocytes Absolute Auto 3.16 K/mm3 (0.9-3.2); Lymphocytes Percent Auto 31.7 % (18.3-44.2); Mean Corpuscular HGB Conc 34.3 g/dl (32-36); Mean Corpuscular Hemoglobin 27.9 pg (26-34); Mean Corpuscular Volume 81.3 fl (80-100); Mean Platelet Volume 11.2 fl (7.4-10.4); Monocytes Absolute Auto 0.6 K/mm3 (0.1-0.6); Monocytes Percent Auto 6.2 % (2.6-8.5); Neutrophils Percent Auto 60.5 % (45.5-73.1); Platelet Count Result 279 k/mm3 (150-375); Red Blood Count 4.27 M/mm3 (4.2-5.4); Red Cell Distribution Width 13.1 % (11.5-14.5)
[2020-10-15 09:19] LABS: Alanine Aminotransferase 18 U/L (4-35); Albumin Level 4.1 g/dL (3.5-5.1); Alkaline Phosphatase 66 U/L (38-126); Anion Gap 10 mmol/L (8-16); Aspartate Amino Transferase 35 U/L (14-36); Bilirubin,Total 0.2 mg/dL (0.2-1.3); Blood Urea Nitrogen 8 mg/dL (7-17); Calcium 9.4 mg/dL (8.4-10.2); Carbon Dioxide 19 mmol/L (22-30); Chloride 106 mmol/L (98-107); Estimated CRCL calculation 101 ml/min; Estimated Glomerular Filt Rate > 60; Glucose 112 mg/dL (65-105); Potassium 3.4 mmol/L (3.4-5.0); Sodium 135 mmol/L (137-145)
--- NOTE | 2020-10-15 09:22 | PC.NURSE ---
heart tone was 207 bpm by doppler.
[2020-10-15 09:23] VITALS: BP 137/81; PULSE 114
[2020-10-15 09:26] VITALS: BP 142/95; PULSE 123
[2020-10-15 09:27] VITALS: BP 142/95; PULSE 136
[2020-10-15 09:29] VITALS: BP 142/95; PULSE 113; RESP 20; O2SAT 100
--- NOTE | 2020-10-15 10:06 | PC.NURSE ---
pt not able to urinate at this time. pt declining straight catheter.
--- NOTE | 2020-10-15 16:30 | WPDCN ---
Assessment and Plan Assessment and plan (1) Supervision of high risk , unspecified, unspecified trimester: Code(s): O09.90 - Supervision of high risk , unspecified, unspecified trimester Status: Acute Assessment and Plan: 29 at 16w GA c/o vaginal bleeding and gush of fluid active IUP with FCA on US, oligohydramnios noted Rh+ H/H 11.9/34 (2) premature rupture of membranes: Code(s): O42.919 - premature rupture of membranes, unspecified as to length of time between rupture and onset of labor, unspecified trimester Status: Acute Assessment and Plan: pt reports large gush of fluid in the ED after presenting for vaginal bleeding oligohydramnios on US blood tinged vaginal pooling on exam cvx visibly 1 cm no products of conception visualized at the cervix no active bleeding on exam WBC 10 afebrile, VSS results discussed with patient discussed previable gestational age, discussed risks of hypoplastic lung development in the setting of prolonged PPROM. discussed that 70-80% of PPPROM will deliver within 1-2 weeks No concern for active PTL at this time, pt stable Pt given chorioamnionitis precautions. advised patient to return to the hospital with any signs of abdominal pain, contractions, fevers, continued bleeding. Pt to follow up in office tomorrow AM for repeat exam. HPI Data of Consult Date/Time: 10/15/20 10:30 Primary Care Provider: Lisa Toney, PA Consult Narrative Narrative: Ling Simon is a 29 year old female at 16w GA who presents to the ED with complaints of vaginal bleeding. Pt states she woke up around 0200 and was hungry. She tried to eat a snack and started having intense abdominal cramping. She tried to drink a soda and water and go to bed. She states that she continued to have cramping and then noticed vaginal bleeding. She states the bleeding was bright red. While in the ED, she reproted a large gush of fluid like her water broke. Pt was evaluated in the ED and US showed a live active IUP with FCA but oligohydramnios. Pt states she has continued to have a minimal amount of bleeding. She states her cramping has resolved. She denies any contractions. She denies any fever, chills, nausea or vomiting. Review of Systems Review of Systems: All systems reviewed & are unremarkable except as noted in HPI and below PMFSH Past Medical History Medical History GERD (gastroesophageal reflux disease) UTI (urinary tract infection) Social History Social History Smoking status: Never smoker Gender identity (if verbalized by the patient): Female Meds Home Medications and Allergies Home Medications Medication Instructions Recorded Confirmed Type estradiol mg 07/19/20 History progesterone mg IM 07/19/20 History ondansetron 4 mg PO Q8H PRN #10 tablet 09/27/20 Rx Allergies Allergy/AdvReac Type Severity Reaction Status Date / Time No Known Allergies Allergy Unknown Verified 10/15/20 07:56 Vital Signs Vital Signs - 24 hr 10/15/20 07:53 10/15/20 09:23 10/15/20 09:26 Temperature 36.7 C Pulse Rate 150 H 114 H 123 H Respiratory Rate 20 Blood Pressure 154/92 H 137/81 142/95 H Pulse Oximetry 100 10/15/20 09:27 10/15/20 09:29 Temperature Pulse Rate 136 H 113 H Respiratory Rate 20 Blood Pressure 142/95 H 142/95 H Pulse Oximetry 100 Exam Const: General: cooperative, healthy appearing and no acute distress Nutritional Appearance: average body habitus Limitations: no limitations Eyes: General: appearance normal, both eyes and all related structures Neck: Neck: normal visual inspection Resp: Effort & Inspection: normal respiratory effort and able to speak in complete sentences Cardio: Jugular venous distension: no JVD Rate: regular rate Rhythm: regular rhythm GI: Inspection: norm
== END 2020-10-15 11:02 | disposition home or self-care (01) ==
PROVIDERS: Emergency Provider Emergency Medicine; PCP Physician Assistant
DX: O42.912 Preterm premature rupture of membranes, unspecified as to length of time between rupture and onset of labor, second trimester (principal); O09.92 Supervision of high risk pregnancy, unspecified, second trimester; O99.612 Diseases of the digestive system complicating pregnancy, second trimester; K21.9 Gastro-esophageal reflux disease without esophagitis; Z87.440 Personal history of urinary (tract) infections; Z3A.16 16 weeks gestation of pregnancy
CPT/HCPCS: 36415; 76816; 80053; 84702; 85025; 85461; 99284

== ENCOUNTER 2020-10-17 10:23 | Observation (INO) | payer OTHER, SELFPAY ==
[2020-10-17] VITALS (32 sets, daily range): BP systolic 123–135; BP diastolic 78–84; PULSE 75–124; TEMP 36.6; O2SAT 82–100; BMI 29.2
[2020-10-17 11:18] LABS: Hematocrit 32.3 % (37.0-47.0); Hemoglobin 10.8 g/dL (12.0-15.0); Mean Corpuscular HGB Conc 33.4 g/dl (32-36); Mean Corpuscular Hemoglobin 27.8 pg (26-34); Mean Platelet Volume 10.9 fl (7.4-10.4); Platelet Count Result 254 k/mm3 (150-375); Red Blood Count 3.89 M/mm3 (4.2-5.4); Red Cell Distribution Width 13.1 % (11.5-14.5); White Blood Count 9.2 K/mm3 (4.5-10.0)
--- NOTE | 2020-10-17 12:33 | PM.OBTRLD ---
OB - Triage/Final Diagnosis Visit Information Date of evaluation: 10/17/20 Reason for evaluation: other (vaginal bleeding) Comments/Additional reasons for admission: 29 yo at 17w who presents with vaginal bleeding . Pt is complicated by PPROM on 10/15/20. Pt had vaginal bleeding and a large gush of fluid and was found to have oligohydramnios on US. Pt still had an active IUP w/ FCA. pt states that this AM she noticed a small amount of blood on tissue after wiping. She denies any contractions or pain. She denies any fever, chills, nausea, vomiting. She denies any bright red vaginal bleeding. I have assessed the risk for this patient, Ling Simon, and determined that she would benefit from observation care. Evaluation Baseline heart rate: 165 Laboratory results: Laboratory Tests 10/17/20 11:08 WBC 9.2 RBC 3.89 L Hgb 10.8 L Hct 32.3 L MCV 83.0 MCH 27.8 MCHC 33.4 RDW 13.1 Plt Count 254 MPV 10.9 H Vital signs: Vital Signs - 24 hr 10/17/20 10:40 10/17/20 10:45 10/17/20 10:48 Pulse Rate 104 H Blood Pressure 135/84 Pulse Oximetry 100 100 10/17/20 10:50 10/17/20 10:55 10/17/20 11:00 Pulse Rate 103 H Blood Pressure 123/78 Pulse Oximetry 100 100 100 10/17/20 11:05 10/17/20 11:10 10/17/20 11:15 Pulse Rate Blood Pressure Pulse Oximetry 100 100 100 10/17/20 11:17 10/17/20 11:18 10/17/20 11:23 Pulse Rate Blood Pressure Pulse Oximetry 100 100 100 10/17/20 11:28 10/17/20 11:33 10/17/20 11:37 Pulse Rate Blood Pressure Pulse Oximetry 100 100 100 10/17/20 11:43 10/17/20 11:48 10/17/20 11:53 Pulse Rate Blood Pressure Pulse Oximetry 100 100 100 10/17/20 11:58 10/17/20 12:03 10/17/20 12:04 Pulse Rate Blood Pressure Pulse Oximetry 100 100 100 10/17/20 12:07 10/17/20 12:12 10/17/20 12:17 Pulse Rate Blood Pressure Pulse Oximetry 93 100 100 10/17/20 12:22 10/17/20 12:27 10/17/20 12:32 Pulse Rate Blood Pressure Pulse Oximetry 100 100 98 Comments: FHT noted today on BSUS. WBC 9.2. Afebrile. Pt is tachycardic but attributes it to anxiety. abdomen non-tender on exam. No signs of choriomanionitis. Pt reassured about FHT. again, counseled on bleeding precautions, PTL and signs of infection. Pt d/c home with follow up this Monday Final Diagnosis (1) premature rupture of membranes: Code(s): O42.919 - premature rupture of membranes, unspecified as to length of time between rupture and onset of labor, unspecified trimester Status: Acute
--- NOTE | 2020-10-17 13:32 | OBADM ---
This patient, Ling Simon, admitted to the OB room OB Post 113 for observation. Patient oriented to hospital policies and general routines including ID bracelet, bed and alarms, visiting hours, pain management, procedures, bathroom and other care routines, personal items, smoking policy, room service/diet, call light and visiting hours. Patient is encouraged to report perceived risks to care and to ask questions if she does not understand what she is told or what she should do.
== END 2020-10-17 13:28 | disposition home or self-care (01) ==
PROVIDERS: Admitting Provider Student in an Organized Health Care Education/Training Program; PCP Physician Assistant; Visit Provider Student in an Organized Health Care Education/Training Program
DX: O46.92 Antepartum hemorrhage, unspecified, second trimester (principal); O42.912 Preterm premature rupture of membranes, unspecified as to length of time between rupture and onset of labor, second trimester; Z3A.17 17 weeks gestation of pregnancy
CPT/HCPCS: 36415; 85027; G0378; G0379

== ENCOUNTER 2020-10-26 21:35 | Observation (INO) | payer OTHER, SELFPAY ==
[2020-10-26 21:35] VITALS: BMI 29.0
--- NOTE | 2020-10-26 21:35 | OBADM ---
This patient, Ling Simon, admitted to the OB room OB Post 116 for observation. Patient/family oriented to hospital policies and general routines including ID bracelet, bed and alarms, visiting hours, pain management, procedures, bathroom and other care routines, personal items, smoking policy, room service/diet, and visiting hours. Patient/Family are encouraged to report perceived risks to care and to ask questions if they do not understand what they are told or what they should do.
--- NOTE | 2020-10-26 21:40 | PC.NURSE ---
Pt is 18 4/7 weeks gestation with SROM at 16 weeks. Pt staes she has been having increased in cramping today.
[2020-10-26 22:00] VITALS: BP 139/68; PULSE 112
--- NOTE | 2020-10-26 22:05 | PC.NURSE ---
Dr. Soria notified of FHT's. Pt resting quietly and appears comfortable. Pt stated she had not had BM for past week as she is afraid to bear down on toilet.
--- NOTE | 2020-10-26 23:00 | PC.NURSE ---
Pt offered the option to stay in OB tonight due to cramping or to go home to rest. Pt state she will go home and return if cramping increases. Pt does not have pain. Just discomfort with cramping. Pt to take Colace for constipation and advised she can also take Miralax or use Fleets enema per Dr. Soria.
[2020-10-26] MEDS: DOCUSATE SODIUM 100 MG CAPSULE PO (23:08)
--- NOTE | 2020-10-27 00:08 | PC.NURSE ---
2200 Dr. Soria notified of difficulty obtaining FHT's. Will continue to attempt. Abdomen soft and non tender when attempting to get FHT's.
--- NOTE | 2020-10-27 11:26 | PM.OBTRLD ---
OB - Triage/Final Diagnosis Visit Information Date of evaluation: 10/26/20 Reason for evaluation: threatened labor and other (PPROM) Comments/Additional reasons for admission: I have assessed the risk for this patient, Ling Simon, and determined that she would benefit from observation care. Evaluation Vital signs: Vital Signs - 24 hr 10/26/20 22:00 Pulse Rate 112 H Blood Pressure 139/68
== END 2020-10-26 23:28 | disposition home or self-care (01) ==
PROVIDERS: Admitting Provider Student in an Organized Health Care Education/Training Program; PCP Physician Assistant; Visit Provider Student in an Organized Health Care Education/Training Program
DX: O47.02 False labor before 37 completed weeks of gestation, second trimester (principal); O42.912 Preterm premature rupture of membranes, unspecified as to length of time between rupture and onset of labor, second trimester; Z3A.18 18 weeks gestation of pregnancy
CPT/HCPCS: A9270; G0378; G0379

== ENCOUNTER 2020-11-30 01:47 | Observation (INO) | payer OTHER, SELFPAY ==
--- NOTE | 2020-11-30 02:00 | PC.NURSE ---
This patient, Ling Simon, admitted to the OB room OB Post 117 for observation. Patient/family oriented to hospital policies and general routines including ID bracelet, bed and alarms, visiting hours, pain management, procedures, bathroom and other care routines, personal items, smoking policy, room service/diet, and visiting hours. Patient/Family are encouraged to report perceived risks to care and to ask questions if they do not understand what they are told or what they should do.
[2020-11-30 02:08] VITALS: BP 146/87; PULSE 116
[2020-11-30 02:15] VITALS: BP 134/77; PULSE 93; BMI 29.0
--- NOTE | 2020-11-30 03:59 | PC.NURSE ---
Pt has PROM since 16 weeks. FHT have been present since that time. Pt has appointment with [facility] today as she is 23 3/7 weeks States she had vaginal bleeding just prior to arrival with wiping. Pt is not bleeding at this time.
--- NOTE | 2020-12-12 08:30 | PM.OBTRLD ---
OB - Triage/Final Diagnosis Visit Information Reason for evaluation: other (spotting) Comments/Additional reasons for admission: I have assessed the risk for this patient, Ling Simon, and determined that she would benefit from observation care.
== END 2020-11-30 02:50 | disposition home or self-care (01) ==
PROVIDERS: Admitting Provider Obstetrics & Gynecology; PCP Physician Assistant; Visit Provider Obstetrics & Gynecology
DX: O26.859 Spotting complicating pregnancy, unspecified trimester (principal); Z3A.00 Weeks of gestation of pregnancy not specified
CPT/HCPCS: G0378; G0379